=== PATIENT | male | born 2005 | race Two or more races ===

== ENCOUNTER → 2025-02-28 | Outpatient (CLI) | payer MEDICAID, SELFPAY ==
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
== END | disposition home or self-care (01) ==
PROVIDERS: PCP Nurse Practitioner Family; Referring Provider Orthopaedic Surgery; Visit Provider Orthopaedic Surgery
DX: S89.91XA Unspecified injury of right lower leg, initial encounter (principal); W34.00XA Accidental discharge from unspecified firearms or gun, initial encounter
CPT/HCPCS: 73560

== ENCOUNTER 2025-04-03 08:20 | Outpatient (RCR) | payer MEDICAID, SELFPAY ==
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
== END 2025-04-03 23:59 | disposition home or self-care (01) ==
LOC: CPTX 08:20
PROVIDERS: PCP Orthopaedic Surgery; Referring Provider Orthopaedic Surgery; Visit Provider Orthopaedic Surgery
DX: M25.561 Pain in right knee (principal); S81.031D Puncture wound without foreign body, right knee, subsequent encounter; W34.00XD Accidental discharge from unspecified firearms or gun, subsequent encounter
CPT/HCPCS: 97162

== ENCOUNTER 2025-04-12 08:30 | Outpatient (RCR) | payer MEDICAID, SELFPAY ==
--- NOTE | 2025-04-05 09:42 | PT.ODAYNRPT ---
PT Outpatient Daily Note OP Daily Note Outpatient Physical Therapy Treatment Date: 04/05/25 Visit Reasons: RT knee pain Subjective: Pt reports R knee is doing ok, has been walking short distance without crutch. Objective: Please see flow sheet for there x list. Assessment: Pt demonstrates out toeing gait with R LE during GT in parallel bars corrects with verbal cues. Plan: Continue with poC. Length of Time (minutes) of Treatment: 30 Minutes Procedure Charges Therapeutic Exercise 30 minutes: Yes
--- NOTE | 2025-04-10 09:34 | PTNOTE_ITS ---
PT Outpatient Daily Note OP Daily Note Outpatient Physical Therapy Treatment Date: 04/10/25 Visit Reasons: RT knee pain Subjective: * Pt reports R knee is doing better, no longer using crutches. Pt expressed that he would like to return to boxing and running soon, has a follow up with surgeon this month. Objective: Please see flow sheet for ther ex list. Assessment: Progressing interventions within post op protocol. Plan: Continue with poC. Length of Time (minutes) of Treatment: 30 Minutes Procedure Charges Therapeutic Exercise 30 minutes: Yes
--- NOTE | 2025-04-12 09:49 | PT.ODAYNRPT ---
PT Outpatient Daily Note OP Daily Note Outpatient Physical Therapy Treatment Date: 04/12/25 Visit Reasons: RT knee pain Subjective: Overall better with less pain. Doing exercise at home including squats with 10 lb weight Objective: See F/S for therex Assessment: Good strength and low pain with squats and lunges Plan: Continue per POC Length of Time (minutes) of Treatment: 30 Minutes Procedure Charges Therapeutic Exercise 30 minutes: Yes
--- NOTE | 2025-04-20 18:15 | PT.ODS1RPT ---
PT OP Progress/Discharge Note Date of Service: 04/20/25 Progress Note/DC Note Progress Note/Discharge Note: DC Note Patient Information Visit Reasons: RT knee pain Service Continue Service or Discharge: Discharge Discharge Date: 04/20/25 Status Assessment: Pt attended the initial evaluation and 3 Rx visits and then no showed on 04/18 and 04/20 which is not in compliance with attendance policy. Pt?s attendance is not consistent enough to make progress with goals. Thank you for your referrals. Plan: D/C
== END 2025-05-04 23:59 | disposition home or self-care (01) ==
LOC: CPTX 08:30
PROVIDERS: PCP Orthopaedic Surgery; Referring Provider Orthopaedic Surgery; Visit Provider Orthopaedic Surgery
DX: M25.561 Pain in right knee (principal); S81.031D Puncture wound without foreign body, right knee, subsequent encounter; W34.00XD Accidental discharge from unspecified firearms or gun, subsequent encounter
CPT/HCPCS: 97110